=== PATIENT | male | born 1995 | race Caucasian/White ===

== ENCOUNTER 2017-02-25 21:55 | Inpatient (IN) | payer BC ==
--- NOTE | 2017-02-25 22:47 | EDPHY ---
Mental Health General Previous Psychiatric History: substance abuse, depression Smoking Status: Current some day smoker Time Patient Placed on Detainer: 22:35 Time Medically Cleared for Psychiatric Evaluation: 23:15 Time of Transfer of Care: 00:00 To [address]:: Jossie Narrative: CHIEF COMPLAINT: Depression HISTORY OF PRESENT ILLNESS: 21-year-old male presents emergency department complaining of depression and suicidal thoughts after he found out his girlfriend was going to prom with somebody else. Patient has a history of depression, he has a history of suicidal thoughts and depression 1 year ago. Patient reports he was on 2 different depression medications which he only took for a few months. Patient reports no suicidal plan though he told his mom and dad he wanted to go to bed and did not to wake up. Patient reports using occasional marijuana, cocaine and Xanax. He denies any drug use today. REVIEW OF SYSTEMS: A comprehensive 10 point review of systems is otherwise negative aside from elements mentioned in the history of present illness. Physical Exam Gen: Alert and Oriented, NAD HEENT: PERRL, moist mucous membranes NECK: no meningismus CV: regular rate and regular rhythm PULM: CTAB, no wheezes ABDOMEN: soft, non tender to palpation, BS present BACK: No CVA tenderness NEURO: Neurologically grossly intact EXTREMITIES: normal appearing SKIN: no rash or break in skin on exposed skin PSYCH: Flat affect, reports suicidal ideation. (Eliza Manuel) Medical Decision Making: PHYSICIAN DOCUMENTATION: The patient was evaluated and managed by the Physician [employer] Manager. My co- signature indicates that I have reviewed this chart and I agree with the findings and plan of care as documented. I am the secondary supervising physician. 3:00 a.m.- The patient has been seen by the mental health worker. He will be placed at [address] [place] [address] Vargas accepts the patient and I have completed the EMTALA form (Rosalva Sethi) - Objective Vital Signs: Initial Vital Signs Temperature (C) 36.8 C 02/25/17 22:00 Heart Rate 68 02/25/17 22:00 Respiratory Rate 16 02/25/17 22:00 Blood Pressure 114/70 02/25/17 22:00 O2 Sat (%) 95 02/25/17 22:00 O2 Delivery Mode Room Air Allergies/Adverse Reactions: No Known Allergies Allergy (Unverified 02/25/17 22:02) Home Medications: Medication Instructions Recorded NK [No Known Home Meds] 02/25/17 Laboratory Results: Laboratory Results 02/25/17 22:50 02/25/17 22:50 02/25/17 02/25/17 02/25/17 22:50 22:50 22:48 WBC 11.94 10^3/uL H 10^3/uL (3.80-9.50) RBC 5.27 10^6/uL 10^6/uL (4.40-6.38) Hgb 17.6 g/dL H g/dL (13.7-17.5) Hct 49.2 % % (40.0-51.0) MCV 93.4 fL fL (81.5-99.8) MCH 33.4 pg pg (27.9-34.1) MCHC 35.8 g/dL g/dL (32.4-36.7) RDW 12.3 % % (11.5-15.2) Plt Count 345 10^3/uL 10^3/uL (150-400) MPV 9.8 fL fL (8.7-11.7) Neut % (Auto) 64.2 % % (39.3-74.2) Lymph % (Auto) 25.3 % % (15.0-45.0) [place] % (Auto) 8.5 % % (4.5-13.0) Eos % (Auto) 0.8 % % (0.6-7.6) Baso % (Auto) 0.8 % % (0.3-1.7) Nucleat RBC Rel Count 0.0 % % (0.0-0.2) Absolute Neuts (auto) 7.67 10^3/uL H 10^3/uL (1.70-6.50) Absolute Lymphs (auto) 3.02 10^3/uL H 10^3/uL (1.00-3.00) Absolute Monos (auto) 1.02 10^3/uL H 10^3/uL (0.30-0.80) Absolute Eos (auto) 0.09 10^3/uL 10^3/uL (0.03-0.40) Absolute Basos (auto) 0.09 10^3/uL 10^3/uL (0.02-0.10) Absolute Nucleated RBC 0.00 10^3/uL 10^3/uL (0-0.01) Immature Gran % 0.4 % % (0.0-1.1) Immature Gran # 0.05 10^3/uL 10^3/uL (0.00-0.10) Sodium 140 mEq/L mEq/L (134-144) Potassium 4.1 mEq/L mEq/L (3.5-5.2) Chloride 102 mEq/L mEq/L (97-110) Carbon Dioxide 24 mEq/l mEq/l (22-31) Anion Gap 14 mEq/L mEq/L (8-16) BUN 11 mg/dL mg/dL (7-23) Creatinine 0.8 mg/dL mg/dL (0.7-1.3) Estimated GFR > 60 Glucose 86 mg/dL mg/dL (70-100) Calcium 10.3 mg/dL mg/dL (8.5-10.4) Urine Opiates Screen NEGATIVE (NEGATIVE) Urine Barbiturates NEGATIVE (NEGATIVE) Ur Phencyclidine Scrn NEGATIVE (NEGATIVE) Ur Amphetamine Screen NEGATIVE (NEGATIVE) U Benzodiazepines Scrn NEGATIVE (NEGATIVE) Urine Cocaine Screen NON-NEGATIVE H (NEGATIVE) U Marijuana (THC) Screen NON-NEGATIVE H (NEGATIVE) Ethyl Alcohol < 10 mg/dL mg/dL (0-10) Departure - Departure Disposition: [facility] IP Clinical Impression: Suicidal ideation Condition: Fair
[2017-02-25 22:56] LABS: % IMMATURE GRANULYOCYTES 0.4 % (0.0-1.1); ABSOLUTE IMMATURE GRANULOCYTES 0.05 10^3/uL (0.00-0.10); ADD DIFF? NO; ADD MORPH? NO; ADD SCAN? NO; ATYPICAL LYMPHOCYTE FLAG 10 (0-99); FRAGMENT RBC FLAG 0 (0-99); HEMATOCRIT 49.2 % (40.0-51.0); HEMOGLOBIN 17.6 g/dL (13.7-17.5); LEFT SHIFT FLG 0 (0-99); LIPEMIA HEMOLYSIS FLAG 90 (0-99); MEAN CELL HEMOGLOBIN 33.4 pg (27.9-34.1); MEAN CELL HEMOGLOBIN CONCENTR. 35.8 g/dL (32.4-36.7); MEAN CELL VOLUME 93.4 fL (81.5-99.8); MEAN PLATELET VOLUME 9.8 fL (8.7-11.7); PLATELET CLUMPS FLAG 0 (0-99); PLATELET COUNT 345 10^3/uL (150-400); RED BLOOD CELL COUNT 5.27 10^6/uL (4.40-6.38); RED CELL DISTRIBUTION WIDTH 12.3 % (11.5-15.2)
[2017-02-25 23:14] LABS: ANION GAP 14 mEq/L (8-16); CALCIUM 10.3 mg/dL (8.5-10.4); CARBON DIOXIDE 24 mEq/l (22-31); CHLORIDE 102 mEq/L (97-110); CREATININE 0.8 mg/dL (0.7-1.3); ETHANOL SERUM < 10 mg/dL (0-10); GLOMERULAR FILTRATION RATE > 60; GLUCOSE 86 mg/dL (70-100); POTASSIUM 4.1 mEq/L (3.5-5.2); SODIUM 140 mEq/L (134-144)
[2017-02-26] MEDS ORDERED: OLANZapine DISINTEGR 5 MG TAB PO PRN (04:15)
[2017-02-26] MEDS ORDERED: NICOTINE POLACRILEX 2 MG GUM B PRN (04:15)
[2017-02-26] MEDS ORDERED: MAGNESIUM HYDROXIDE 30 ML UDCUP PO PRN (04:15)
[2017-02-26] MEDS ORDERED: MAG HYDROX/AL HYDROX/SIMETH 30 ML UDCUP PO PRN (04:15)
[2017-02-26] MEDS ORDERED: ACETAMINOPHEN 325 MG TAB PO PRN (04:15)
[2017-02-26] MEDS: LORazepam 0.5 MG TAB PO PRN ×4 (12:57→23:08)
--- NOTE | 2017-02-26 16:04 | BCON ---
[f rep ] BEHAVIORAL HEALTH CONSULTATION INTERNAL MEDICINE CONSULTATION DATE OF CONSULTATION: 02/26/2017 REFERRING PHYSICIAN: Wendy Vargas MD REASON FOR CONSULTATION: Medical clearance for inpatient behavioral health stay. HISTORY OF PRESENT ILLNESS: The patient came to the emergency department yesterday complaining of depression and suicidal thoughts after he found that his girlfriend was going to the [facility] with somebody else. He had a history of depression in the past and had been on antidepressants but only took them for a few months. He reported using occasional marijuana, cocaine and Xanax. He was evaluated by the mental health team and admitted for further psychiatric care. He currently reports feeling tired, and reviewing the medication administration record he was given lorazepam today at 1344 in the afternoon. Otherwise he is without any acute complaints. PAST MEDICAL HISTORY: He denies any history of any medical illnesses other than depression. PAST SURGICAL HISTORY: He denies a history of surgeries. MEDICATIONS: He was on no medications. 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 He is a freshman. He lives in a dormitory on campus. He smokes occasional cigarettes. He also uses marijuana, cocaine and alprazolam. FAMILY HISTORY: Noncontributory. REVIEW OF SYSTEMS: A 10-point review of systems was conducted and other than fatigue was negative. PHYSICAL EXAM: VITAL SIGNS: Blood pressure is 132/65, heart rate is 80, respiratory rate is 16, oxygen saturation is 98% on room air, temperature is 36.6 degrees centigrade. His weight is 74.8 kg for a body mass index of 22.4. GENERAL: This is a well-nourished, well-developed man, appears his chronologic age, cooperative, and in no acute distress. HEENT: Extraocular movements are intact. Pupils are equal, round, and reactive to light. Mucous membranes are moist. Dentition is in good condition. His tonsils are 3+ in size. There is no posterior oropharyngeal mucus. There were no mucosal lesions. NECK: Supple. HEART: There is a regular rate and rhythm with no murmurs, rubs, or gallops. LUNGS: Clear to auscultation bilaterally. ABDOMEN: Soft, nontender , nondistended with normoactive bowel sounds. EXTREMITIES: There is no cyanosis, clubbing, or edema. NEUROLOGIC: He is alert and oriented x3. Cranial nerves 2-12 are grossly intact. There is no focal weakness and sensation is intact to light touch. LABORATORY STUDIES: Drawn in the emergency department. CBC showed a slightly elevated white blood cell count at 11.094. There was no left shift. Additionally, his hemoglobin was elevated at 17.6. Otherwise CBC was within normal limits. Serum chemistry revealed normal renal function and electrolytes. Toxicology screen: In the serum was negative for ethyl alcohol and in the urine was non-negative for cocaine and marijuana, and otherwise was negative for substances of abuse. ASSESSMENT/RECOMMENDATIONS: 1. Mental health issues. Pending further evaluation and management per Psychiatry and the mental health team. 2. Polysubstance abuse. He might benefit from specific substance abuse counseling. I see no medical contraindications to the patient's continued stay on the inpatient behavioral health unit or to any psychiatric medications or procedures. Thank you very much for including me in the care of this patient and please do not hesitate to contact me or the hospitalist service should there be need for further medical evaluation. /[id number]/MODL MTDD
[2017-02-26] MEDS: ZOLPIDEM TARTRATE 5 MG TAB PO PRN (22:31)
--- NOTE | 2017-02-27 06:32 | SOAPPROG ---
SOAP Progress Note Assessment/Plan: Assessment: Plan: 02/27/17 DAY ' UPDATE: Objective: Vital Signs Temp Pulse Resp BP Pulse Ox 36.8 C 91 16 132/78 H 94 02/27/17 02:49 02/27/17 02:49 02/27/17 02:49 02/27/17 02:49 02/27/17 02:49 ICD10 Worksheet Patient Problems: Problems Problem Status Onset Suicidal ideation Acute
--- NOTE | 2017-02-27 08:36 | BAPA ---
[f rep st] ADMISSION PSYCHIATRIC ASSESSMENT PATIENT IDENTIFICATION: The patient presents as a 21-year-old, single, white male, who is actively enrolled at as a freshman student. The patient lives real time [place] on campus in a freshman dormitory. He is not an identified psychiatric outpatient in the community at this time. Patient was admitted on an M1 hold to for complaints of a depressive crisis including suicidality. CHIEF COMPLAINT: "I wish I was unconscious or ." HISTORY OF PRESENT ILLNESS: The patient presents with a history of syndromal depression, onset as a ayse in high school age 18. The patient also presents with a history of poly substance abuse-primarily associated with THC, alcohol, and more recently also cocaine. The patient was treated with psychotherapy and medication management as a high school student living with his family in [facility]. History suggests that past treatment was of some help. Patient has not engaged in psychiatric treatment for an extended period of time, and states he was feeling stable following graduation from high school through this past summer and enrollment in late May as a freshman at . He states he has developed a stable life at , has made friends, joined a fraternity, and is succeeding academically. Patient's stability was abruptly disturbed on the day prior to admission when he found out that his high school sweetzunildart, who was completing her senior year at his high school in [place], canceled plans with the patient to take her to the high school prom, which had been their plan for an extended period of time. He learned from 1 of her friends that she had decided to go to the dance with someone else. He attempted to reach his girlfriend but calls were blocked. This information impacted to create a reactive depressive crisis. The patient states his despair and sadness intensified abruptly, psychomotor energy dropped, patient became acutely withdrawn. He did reach out and speak by telephone with his parents in [facility]. He expressed passive suicidal ideation, stating a suicidal thought process as referenced above in Chief Complaint. While speaking to his mother, mother became acutely concerned for his safety and persuaded the patient to self -refer to the [facility] Emergency Room for assistance. The patient's father strongly endorsed mother's suggestion and communicated to the patient that he would fly out from [place] to [place] to provide support to his son. In the emergency room, the patient cooperated with the medical and psychiatric assessment. Lab screens included a CBC, chemistries, and toxic screen. Toxic screen was positive for cocaine and THC. A blood alcohol was obtained and reported as negative, and other screens were unremarkable and/or within normal limits. The patient was seen in psychiatric consultation by [facility] staff. He provided content consistent with the above narrative. Patient also described past psychiatric symptom and treatment history as noted below. Mother was also called and contributed to intake database. On direct exam, the patient presented as acutely dysphoric with slowed speech, complaints of collapsed energy, again expressed passive suicidal ideation. He was deemed to be a high risk for self- harm and unable to manage safely in the community. He was placed on an M1 hold and accepted for admission to [address] [place] [address]. PSYCHIATRIC HISTORY: The patient developed an acute syndromal depression during his ayse year in high school. At the time, the patient was also abusing THC and ETOH. His behavior, per mother's report, became angry and rebellious. The patient states his parents insisted that he pursue outpatient psychiatric treatment. He did engage in outpatient psychotherapy and medication management, states he was prescribed Zoloft. Treatment apparently continued for 9-10 months. Patient reports it was helpful in diminishing his substance use as well as facilitated resolution of depressive symptoms. The patient stated the Zoloft regimen was helpful and that he stopped the medication after improving and with his doctors permission. Mother reported contradicting information to [facility], stating that patient stopped the medications secondary to side effects on his own. As referenced in the Present Illness, the patient reported he continued to stay depression free, feeling and functioning well through the summer after high school graduation and enrollment at . Patient reportedly stayed functional and well until the day prior to admission with the onset of acute affective pain, again as described in the present illness above. MEDICAL HISTORY: No active medical problems; medical history noncontributory. ALLERGIES: Patient denies environmental, food, or medication allergies. SUBSTANCE ABUSE HISTORY: The patient states he began to use THC and alcohol at age 16. He states his use pattern gradually increased to a problematic level by age 18. He states his substance use declined as he responded to the outpatient psychiatric treatment noted. He states since he enrolled at the [employer] he does "occasionally" use THC and alcohol. He also states he has intermittently used cocaine but does not feel any of his use patterns are problematic. Toxic screen as referenced was positive for cocaine and THC REVIEW OF SYMPTOMS: Medical review of systems: Negative. LEGAL HISTORY: Patient denies current or past history of any legal problems. PERSONAL HISTORY/FAMILY HISTORY: The patient was born and raised in an intact family of origin consisting of his biologic parents, a twin brother, and 2 other siblings. Denies any history for trauma and/or abuse within the family system through his childhood, adolescence and current time. He states he has positive relationships with his parents and siblings. He does state there is a maternal pedigree for alcoholism, but does not provide precise details. He states he has done well academically through high school and is managing his course work at [employer] in stable fashion. He states he has a number of friends since enrolling in college, has joined a fraternity, and has been enjoying his life up through the stressor event experienced prior to admission. ADMISSION MENTAL STATUS EXAM: On direct exam, the patient presents as a young adult male, who looks his stated age. He is kempt, has normal gait and station , engages cooperatively in the session. His mood state is acutely dysphoric, facies visually depressed; patient's speech pattern is slowed with soft tone, consistent with his acute acutely dysphoric mood. Affective range is constricted and expression of affect blunted-again consistent with his dysphoric mood. The patient's thought process is organized and reality focused. He appears to be of average intelligence referencing his vocabulary and language syntax. Memory function is intact across immediate, recent, and remote domains. The patient's insight is fair, impulse control intact, and judgment intact. The patient's thought process is linear, logical, and, to a limited degree, goal focused. Patient describes the impact of his girlfriend's decision to withdraw from the relationship as devastating. He states they have been involved for 2 years and she had decided to enroll at to join him next fall. He is surprised and shocked at the events of the last several days. "I don't know what to do now but I know I don't want to be ." He states he will cooperate with the inpatient treatment plan, maintain himself safely in the hospital, and is looking forward to his father's visiting him later in the day. ADL functions appear to be intact and appropriate for his age. The session focuses on staging his current mental status, obtaining symptom and treatment history, obtaining an overview of patient's lifeline history. He acknowledges the presence of passive suicidal ideation intermittently, but again restates his capacity to maintain himself safely in the hospital. He understands medications may be used during his inpatient stay but that further assessment will be necessary to determine this. FORMULATION: The patient presents as a 21-year-old, single, white male, who has a previous history of syndromal depression. Patient also has history for polydrug abuse. His current level of drug use activity is unclear but gives the impression that he is understating his use pattern since enrolling as a freshman at fall. Treatment will expedite expanding the database by contacting his parents. His need for standing medications will be determined over the next 24 hours. Initially, we will monitor closely his safety and suicidality via the Care Plan applied. collateral cntacts with pt's parents to be expedited. ADMISSION DIAGNOSTIC IMPRESSION: AXIS I: 1. Major Depressive Disorder-by history, chronic induration, recurrent in pattern; rule out acute exacerbation. 2. Alcohol Use Disorder-chronic history; current level of activity unclear. 3. THC Use Disorder-chronic induration, current level of activity unclear. 4. Cocaine Use Disorder-current level of activity unclear. AXIS II: Deferred. AXIS III: No active medical problems.; the patient is medically stable. AXIS IV: Girlfriend's cancellation of plans for her senior prom-2 year romantic relationship with possible break-up acutely; untreated psychiatric status prior to admission; question activity of poly substance use. AXIS V: Admission Global Assessment of Functioning 35. INITIAL TREATMENT PLAN: 1. Nursing-complete admission assessment; monitor patient for safety and suicidality; reinforce compliance with cares and medication regimen as established; orient patient to the unit community and group program and encourage participation. 2. Psychiatry-complete admission assessment; provide daily E/M contacts to complete psychiatric workup, assess and manage psychoactive medication needs, provide reintegrative psychotherapeutic contacts, ally patient with followup treatment post discharge. 3. Clinical Coordination: Daily contacts to expand the database; contact relevant collaterals to facilitate completion of workup; identify discharge resources to linked discharge plan at discharge. 4. Medicine-complete admission consultation per Dr. Kaur. 5. Medications: We will assess over 1st 24 hours and apply standing medication regimen as needed. 6. Prioritized Inpatient Goals: Stabilize mental status sufficient for discharge; complete diagnostic workup to inform discharge planning; ally patient with followup post discharge to linked discharge plan. /[id number]/MODL MTDD
[2017-02-27] MEDS: LORazepam 0.5 MG TAB PO PRN (13:18)
[2017-02-27] MEDS: buPROPion XL 150 MG TAB PO SCH (16:24)
[2017-02-27] MEDS: ZOLPIDEM TARTRATE 5 MG TAB PO PRN (23:01)
--- NOTE | 2017-02-28 06:41 | SOAPPROG ---
SOAP Progress Note Assessment/Plan: Assessment: Plan: 02/27/17 DAY UPDATE: Nursing reports pt remains in behavioral control, c/w cares/meds, slept 7 using Ambien; is isolative and appears visually depressed with soft,slowed speech; did attend selective groups but socially withdrawn. INTAKE/FOC: father presents as empathic and concerned about his son; gives useful overview of son's history - pt always sensitive to from home and evidences "separation anxiety" during childhood in going to school; his fraternal twin would be called by teachers to come into classroom where pt was and comfort him at times/ experienced night terrors (brief awakenings at night with screaming, confusion) < 10 x between ages [age]yo/did well in school and made griendsm, was athletic/ began to use alcohol age 16, added THC age 17 - parents became involved and set limits in active and appropriate manner/ emerging depression as hs ayse into senior year and did engage ?outpt psychiatric rx including psychotherapy and Zoloft/Trazodone regimen; academic and sports suffered during this perios and substance use continued at ?low level / summer before entering college seemed to be better time thru his enrollment; psychiatric rx had stopped early summer/ did have steady relationship with GF last 2 years of hs - very involved with GF coming to house in mornings and going to school with pt; GF was THC and ETOH consumer as well/ parents thought pt adapted well in college with honors grades, friends, were aware he was drinking and using THC but thought he was managing substance use. ON EXAM: presents as residually depressed but more interactive than on Day 1; denies SI; describes vegetative sx not unlike previous episodes "but worse"; responsive to reintegrative support; meds discussed and will begin Bupropion XL trial; MOC spoken with briefly in speaker phone contact with pt present; she and father are congruent in supporting pt through final week of academic year by being present in [place] for direct support and then return him to family home and outpt psychiatric treatment; pt wants to take exams in 2 of his 3 courses and file an "Incomplete" in third course to make up credit at later time. ASSESSMENT/PLAN: emerging syndromal depression as impact of abrupt b/u from GF sinks in/ begin Bupropion XL 150 mg qam; CP d/w Nursing in Rounds; will consider adding Trazadone hs; anticipate short stay with return to campus and followup sT at [facility] Objective: Vital Signs Temp Pulse Resp BP Pulse Ox 36.8 C 91 16 132/78 H 94 02/27/17 02:49 02/27/17 02:49 02/27/17 02:49 02/27/17 02:49 02/27/17 02:49 ICD10 Worksheet Patient Problems: Problems Problem Status Onset Suicidal ideation Acute
[2017-02-28] MEDS: buPROPion XL 150 MG TAB PO SCH (10:36)
[2017-02-28] MEDS: buPROPion 75 MG TAB PO SCH (14:50)
--- NOTE | 2017-02-28 15:03 | SOAPPROG ---
SOAP Progress Note Assessment/Plan: Assessment: Plan: 02/27/17 DAY UPDATE: Nursing reports pt remains in behavioral control, c/w cares/meds, slept 7 using Ambien; is isolative and appears visually depressed with soft,slowed speech; did attend selective groups but socially withdrawn. INTAKE/FOC: father presents as empathic and concerned about his son; gives useful overview of son's history - pt always sensitive to from home and evidences "separation anxiety" during childhood in going to school; his fraternal twin would be called by teachers to come into classroom where pt was and comfort him at times/ experienced night terrors (brief awakenings at night with screaming, confusion) < 10 x between ages [age]yo/did well in school and made griendsm, was athletic/ began to use alcohol age 16, added THC age 17 - parents became involved and set limits in active and appropriate manner/ emerging depression as hs ayse into senior year and did engage ?outpt psychiatric rx including psychotherapy and Zoloft/Trazodone regimen; academic and sports suffered during this perios and substance use continued at ?low level / summer before entering college seemed to be better time thru his enrollment; psychiatric rx had stopped early summer/ did have steady relationship with GF last 2 years of hs - very involved with GF coming to house in mornings and going to school with pt; GF was THC and ETOH consumer as well/ parents thought pt adapted well in college with honors grades, friends, were aware he was drinking and using THC but thought he was managing substance use. ON EXAM: presents as residually depressed but more interactive than on Day 1; denies SI; describes vegetative sx not unlike previous episodes "but worse"; responsive to reintegrative support; meds discussed and will begin Bupropion XL trial; MOC spoken with briefly in speaker phone contact with pt present; she and father are congruent in supporting pt through final week of academic year by being present in [place] for direct support and then return him to family home and outpt psychiatric treatment; pt wants to take exams in 2 of his 3 courses and file an "Incomplete" in third course to make up credit at later time. ASSESSMENT/PLAN: emerging syndromal depression as impact of abrupt b/u from GF sinks in/ begin Bupropion XL 150 mg qam; CP d/w Nursing in Rounds; will consider adding Trazadone hs; anticipate short stay with return to campus and followup sT at [facility] Objective: Vital Signs Temp Pulse Resp BP Pulse Ox 36.4 C 60 14 110/60 96 02/28/17 06:00 02/28/17 06:00 02/28/17 06:00 02/28/17 06:00 02/28/17 06:00 ICD10 Worksheet Patient Problems: Problems Problem Status Onset Suicidal ideation Acute
--- NOTE | 2017-02-28 15:48 | SOAPPROG ---
SOAP Progress Note Assessment/Plan: Assessment: Plan: 02/27/17 DAY UPDATE: Nursing reports pt remains in behavioral control, c/w cares/meds, slept 7 using Ambien; is isolative and appears visually depressed with soft,slowed speech; did attend selective groups but socially withdrawn. INTAKE/FOC: father presents as empathic and concerned about his son; gives useful overview of son's history - pt always sensitive to from home and evidences "separation anxiety" during childhood in going to school; his fraternal twin would be called by teachers to come into classroom where pt was and comfort him at times/ experienced night terrors (brief awakenings at night with screaming, confusion) < 10 x between ages [age]yo/did well in school and made griendsm, was athletic/ began to use alcohol age 16, added THC age 17 - parents became involved and set limits in active and appropriate manner/ emerging depression as hs ayse into senior year and did engage ?outpt psychiatric rx including psychotherapy and Zoloft/Trazodone regimen; academic and sports suffered during this perios and substance use continued at ?low level / summer before entering college seemed to be better time thru his enrollment; psychiatric rx had stopped early summer/ did have steady relationship with GF last 2 years of hs - very involved with GF coming to house in mornings and going to school with pt; GF was THC and ETOH consumer as well/ parents thought pt adapted well in college with honors grades, friends, were aware he was drinking and using THC but thought he was managing substance use. ON EXAM: presents as residually depressed but more interactive than on Day 1; denies SI; describes vegetative sx not unlike previous episodes "but worse"; responsive to reintegrative support; meds discussed and will begin Bupropion XL trial; MOC spoken with briefly in speaker phone contact with pt present; she and father are congruent in supporting pt through final week of academic year by being present in [place] for direct support and then return him to family home and outpt psychiatric treatment; pt wants to take exams in 2 of his 3 courses and file an "Incomplete" in third course to make up credit at later time. ASSESSMENT/PLAN: emerging syndromal depression as impact of abrupt b/u from GF sinks in/ begin Bupropion XL 150 mg qam; CP d/w Nursing in Rounds; will consider adding Trazadone hs; anticipate short stay with return to campus and followup sT at [facility] 02/28/17 15:05 DAY " UPDATE: Nursing reports over last 24 hours pt continues to evidence significant syndromal depression; is slightly more mobilized in spending time in selected groups and some selective contact with patients informally. ON EXAM: presents with residual significant dysphoria, slowed speech, blunted affect; states he "feelsthe same"; does deny SI but does say he continues to feel "hurt and confused"; medications discussed and pt states he's tolerating well; continues to deny major problems with substances before admission and states his cocaineuse is only sporadic; states he's interested in taking final exams as referenced in the session yesterday and would like to study while an inpt here; meds discussed and tp accepts dosing changes as referenced. FOC seen with patient and alone; FOC states his concern with patient present that son will not follow thru with outpt treatment and still wants to use ETOH and drink with friends when discharged; pt said very little in the 3-way; alone FOC shared with me that son's substance use has been much more progressed that previously thought based on information he received in confidence from ex-girl friends parents given their daughter's disclosures to them; he disclosed son was using cocaine to much greater extent in [place] before coming to enroll in college. He also said that son told him he buys drugs from his friends and inferred that use pattern is much heavier that what he thought. He also said when pt present that final exams and papers can be done when pt more functional later into spring and summer and credit be granted so that rapid discharge back to campus not necessary for completing the academic year. I endorse this plan as did pt in the joint meeting before the later disclosures to me about pt's drug use from the [facility]. [facility] and I agreed this information would need to extend pt's inpt stay to complete the workup, effective restabilization, and aftercare planning. [facility] wishes to keep intake from GF's parents in confidence from the patient to which I agreed ON EXAM #2 - Pt seen later in day and focus on needing to develope accurate drug use history to complete workup and aftercare planning; pt alert and responsive in session to cooperating as I explained it's a problem which began age 16 and is always under-reported intially as patients are seeking help. I did share that FOC is concerned that pt's friends are supplying him and using with him. ASSESSMENT/PLAN: residual syndromal depressive acuity; minimizing drug history to date but aware of the need to disclose/ will increase Bupropion to 225 mg qd and add Trazodone 50 mg hs; cp reviewed with Nursing in Rounds and later in shift for weekend focus Objective: Vital Signs Temp Pulse Resp BP Pulse Ox 36.4 C 60 14 110/60 96 02/28/17 06:00 02/28/17 06:00 02/28/17 06:00 02/28/17 06:00 02/28/17 06:00 ICD10 Worksheet Patient Problems: Problems Problem Status Onset Suicidal ideation Acute
[2017-02-28] MEDS: LORazepam 0.5 MG TAB PO PRN (20:45)
[2017-02-28] MEDS: traZODone 50 MG TAB PO SCH (21:49)
[2017-02-28] MEDS: ZOLPIDEM TARTRATE 5 MG TAB PO PRN (23:01)
[2017-03-01] MEDS: buPROPion 75 MG TAB PO SCH (09:55)
[2017-03-01] MEDS: buPROPion XL 150 MG TAB PO SCH (09:55)
[2017-03-01] MEDS: LORazepam 0.5 MG TAB PO PRN ×2 (13:38→21:48)
--- NOTE | 2017-03-01 21:25 | SOAPPROG ---
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 Staes prior to admission , "I was in a sad, depressed state, my parents thought I shouldn't be alone...I wish I went with my friends instead of coming to the hospital...I'm perfectly fine now." Does not think he is depressed, although admits having felt so a few days ago. Admits using cocaine most recently on 02/24/17 which was offered to him "free" at a [employer] constitution party, does not think depr/SI was affected by this or related to any crashing from this. "I am not sad about anything anymore". States girlfriend break-up was on 02/25 after 2 years, and despite problems they had, he thought thinks were going better over the past 2 mo. Admits she didn't want him to do drugs, which he denied doing much "but I lied about it". States she didn't want him to use "b/c she cares about my health", and he himself thinks drugs "minimally" affect his health, mainly uses b/c "it's fun". reports having used cocaine "a handful of times", but doesn't prefer it b/c "it' s addictive, and expensive", noting 2 yrs ago he was using more and felt it's addictive pull. Denies med s/e. Taking meds as Rxd but doesn't think he's depressed, also minimizing substance use being problematic, and seems to regret coming to the hospital for help. Reports drug of choice is THC. Does state having seen a psychiatrist for 5 years in the past for meds/therapy was helpful at that time, and presently is agreeable with plan to refer for MH treatment after d/c. MSE: cooperative, casually dressed, good/fair eye contact, nml rate/vol speech, mood "fine", affect restricted, thoughts linear without delusions, denied any AH /VH, and denied any SI or thoughts to harm others. insight/jdgmt impaired. PLAN: cont Wellbutrin 225mg, Trazodone HS prn cont education on subst use risks/effects on MH. question [employer] compliance with treatment if without insight enc group attendance Objective: Vital Signs Temp Pulse Resp BP Pulse Ox 36.6 C 80 12 106/61 95 03/01/17 06:00 03/01/17 06:00 03/01/17 06:00 03/01/17 06:00 03/01/17 06:00 - Time Spent With Patient Time Spent With Patient: 35min - Pending Discharge Pending Discharge Within 24 Hours: No Pending Discharge Within 48 Hours: No ICD10 Worksheet Patient Problems: Problems Problem Status Onset Suicidal ideation Acute
[2017-03-01] MEDS: traZODone 50 MG TAB PO SCH (21:46)
[2017-03-01] MEDS: ZOLPIDEM TARTRATE 5 MG TAB PO PRN (22:44)
[2017-03-02 06:24] VITALS: O2SAT 92
[2017-03-02] MEDS: buPROPion 75 MG TAB PO SCH (10:59)
[2017-03-02] MEDS: buPROPion XL 150 MG TAB PO SCH (10:59)
[2017-03-02] MEDS: LORazepam 0.5 MG TAB PO PRN ×2 (14:11→21:32)
--- NOTE | 2017-03-02 17:54 | SOAPPROG ---
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 Staes prior to admission , "I was in a sad, depressed state, my parents thought I shouldn't be alone...I wish I went with my friends instead of coming to the hospital...I'm perfectly fine now." Does not think he is depressed, although admits having felt so a few days ago. Admits using cocaine most recently on 02/24/17 which was offered to him "free" at a [employer], does not think depr/SI was affected by this or related to any crashing from this. "I am not sad about anything anymore". States girlfriend break-up was on 02/25 after 2 years, and despite problems they had, he thought thinks were going better over the past 2 mo. Admits she didn't want him to do drugs, which he denied doing much "but I lied about it". States she didn't want him to use "b/c she cares about my health", and he himself thinks drugs "minimally" affect his health, mainly uses b/c "it's fun". reports having used cocaine "a handful of times", but doesn't prefer it b/c "it' s addictive, and expensive", noting 2 yrs ago he was using more and felt it's addictive pull. Denies med s/e. Taking meds as Rxd but doesn't think he's depressed, also minimizing substance use being problematic, and seems to regret coming to the hospital for help. Reports drug of choice is THC. Does state having seen a psychiatrist for 5 years in the past for meds/therapy was helpful at that time, and presently is agreeable with plan to refer for MH treatment after d/c. MSE: cooperative, casually dressed, good/fair eye contact, nml rate/vol speech, mood "fine", affect restricted, thoughts linear without delusions, denied any AH /VH, and denied any SI or thoughts to harm others. insight /jdgmt impaired. PLAN: cont Wellbutrin 225mg, Trazodone HS prn cont education on subst use risks/effects on MH. question long-term compliance with MH treatment if impaired insight enc group attendance 03/02/17 15:25 per staff, slept 7.5hr feeling "great, relaxed" coloring mandala. states he feels "back to my normal self" which he thinks is related to "time, thinking a lot, and meds". Looking forward to summer and returning to [place] and seeing friends. Feels groups on unit have been beneficial. When talking about ex-girlfriend issue, "I just think whatever, it's her loss". "I never wanted to kill myself" Denied med s/e. states sleeping well. Has notebook in which he wrote a lot hoping to present his plan for after d/c during family meeting tomorrow with his father who wants him to go to another in rehab for subst use. Pt proposes weekly meetings with former psychiatrist who was very helpful in past, regular random drug screens, groups for subst use/ depr 2-3x week. Will discuss at [facility] mt tomorrow. MSE: cooperative, casually dressed, nml eye contact, coloring while talking but engaged and then showing his journaling, nml rate/vol speech, mood "great", affect euthymic, thoughts linear and reality-based, denied any AH/VH, and denied any SI or thoughts to harm others. insight/jdgmt seem better PLAN: anticipates family mtg tomorrow with his father and psychiatrist continue current meds. planning for d/c tomorrow with father and f/u in [place] Objective: Vital Signs Temp Pulse Resp BP Pulse Ox 36.3 C 70 12 114/64 92 03/02/17 06:00 03/02/17 06:00 03/02/17 06:00 03/02/17 06:00 03/02/17 06:00 - Pending Discharge Pending Discharge Within 24 Hours: Yes Pending Discharge Within 48 Hours: No Pending Discharge Date: 03/03/17 Pending Discharge Time: 11:00 ICD10 Worksheet Patient Problems: Problems Problem Status Onset Suicidal ideation Acute
[2017-03-02] MEDS: traZODone 50 MG TAB PO SCH (22:06)
[2017-03-02] MEDS: ZOLPIDEM TARTRATE 5 MG TAB PO PRN (22:45)
[2017-03-03 06:24] VITALS: BP 111/56; PULSE 54; RESP 14; TEMP 98.1
[2017-03-03] MEDS: buPROPion XL 150 MG TAB PO SCH (09:31)
[2017-03-03] MEDS: buPROPion 75 MG TAB PO SCH (09:31)
--- NOTE | 2017-03-03 14:35 | SOAPPROG ---
SOAP Progress Note Assessment/Plan: Assessment: Plan: 02/27/17 DAY UPDATE: Nursing reports pt remains in behavioral control, c/w cares/meds, slept 7 using Ambien; is isolative and appears visually depressed with soft,slowed speech; did attend selective groups but socially withdrawn. INTAKE/FOC: father presents as empathic and concerned about his son; gives useful overview of son's history - pt always sensitive to from home and evidences "separation anxiety" during childhood in going to school; his fraternal twin would be called by teachers to come into classroom where pt was and comfort him at times/ experienced night terrors (brief awakenings at night with screaming, confusion) < 10 x between ages [age]yo/did well in school and made friends, was athletic/ began to use alcohol age 16, added THC age 17 - parents became involved and set limits in active and appropriate manner/ emerging depression as hs ayse into senior year and did engage ?outpt psychiatric rx including psychotherapy and Zoloft/Trazodone regimen; academic and sports suffered during this perios and substance use continued at ?low level / summer before entering college seemed to be better time thru his enrollment; psychiatric rx had stopped early summer/ did have steady relationship with GF last 2 years of hs - very involved with GF coming to house in mornings and going to school with pt; GF was THC and ETOH consumer as well/ parents thought pt adapted well in college with honors grades, friends, were aware he was drinking and using THC but thought he was managing substance use. ON EXAM: presents as residually depressed but more interactive than on Day 1; denies SI; describes vegetative sx not unlike previous episodes "but worse"; responsive to reintegrative support; meds discussed and will begin Bupropion XL trial; MOC spoken with briefly in speaker phone contact with pt present; she and father are congruent in supporting pt through final week of academic year by being present in [place] for direct support and then return him to family home and outpt psychiatric treatment; pt wants to take exams in 2 of his 3 courses and file an "Incomplete" in third course to make up credit at later time. ASSESSMENT/PLAN: emerging syndromal depression as impact of abrupt b/u from GF sinks in/ begin Bupropion XL 150 mg qam; CP d/w Nursing in Rounds; will consider adding Trazadone hs; anticipate short stay with return to campus and followup sT at [facility] 03/03/17 14:34 DAY Objective: Vital Signs Temp Pulse Resp BP Pulse Ox 36.7 C 54 L 14 111/56 L 92 03/03/17 06:00 03/03/17 06:00 03/03/17 06:00 03/03/17 06:00 03/03/17 06:00 ICD10 Worksheet Patient Problems: Problems Problem Status Onset Suicidal ideation Acute
--- NOTE | 2017-03-03 14:51 | SOAPPROG ---
SOAP Progress Note Assessment/Plan: Assessment: Plan: 02/27/17 DAY UPDATE: Nursing reports pt remains in behavioral control, c/w cares/meds, slept 7 using Ambien; is isolative and appears visually depressed with soft,slowed speech; did attend selective groups but socially withdrawn. INTAKE/FOC: father presents as empathic and concerned about his son; gives useful overview of son's history - pt always sensitive to from home and evidences "separation anxiety" during childhood in going to school; his fraternal twin would be called by teachers to come into classroom where pt was and comfort him at times/ experienced night terrors (brief awakenings at night with screaming, confusion) < 10 x between ages [age]yo/did well in school and made friends, was athletic/ began to use alcohol age 16, added THC age 17 - parents became involved and set limits in active and appropriate manner/ emerging depression as hs ayse into senior year and did engage ?outpt psychiatric rx including psychotherapy and Zoloft/Trazodone regimen; academic and sports suffered during this perios and substance use continued at ?low level / summer before entering college seemed to be better time thru his enrollment; psychiatric rx had stopped early summer/ did have steady relationship with GF last 2 years of hs - very involved with GF coming to house in mornings and going to school with pt; GF was THC and ETOH consumer as well/ parents thought pt adapted well in college with honors grades, friends, were aware he was drinking and using THC but thought he was managing substance use. ON EXAM: presents as residually depressed but more interactive than on Day 1; denies SI; describes vegetative sx not unlike previous episodes "but worse"; responsive to reintegrative support; meds discussed and will begin Bupropion XL trial; MOC spoken with briefly in speaker phone contact with pt present; she and father are congruent in supporting pt through final week of academic year by being present in [place] for direct support and then return him to family home and outpt psychiatric treatment; pt wants to take exams in 2 of his 3 courses and file an "Incomplete" in third course to make up credit at later time. ASSESSMENT/PLAN: emerging syndromal depression as impact of abrupt b/u from GF sinks in/ begin Bupropion XL 150 mg qam; CP d/w Nursing in Rounds; will consider adding Trazadone hs; anticipate short stay with return to campus and followup sT at [facility] 03/03/17 14:34 DAY ' UPDATE: Nursing reports that over weekend pt did cooperate with further openess and content about drug use history over past 3 - 4 years as well as treatment experience with private psychiatrist which, in fact, was productive and terminated 1 month before beginning at last May 2016. Pt also reported to me in session that his "big brother" - upperclassmen mentor from his fraternity spoke to [pt's father lver weekend to objectify pt's substance use patterns. Father was reassured and FOC and pt spoke together later in day yesterday and reached agreement that pt would resume working with private psychiatrist back home as soon as he return; could be seen as early as tomorrow if pt can DC today. ON EXAM X 2 - seen alone and in family meeting with FOC/ presents as improved descriptively, mmore open with me directly about durg use patterns as well as more factual about the parallel experience of depression during senior year and the effective oupt intervention before coming to college to enroll last summer. He says he and FOC are congruent with a dC today and he would look forward to seeing this psychiatrist tomorrow if DC'd to fly back home with kadener today. Family meeting which followed affirmed his progrss and the agreement between father and son about this followup plan. DC today appropriate. ASSESSMENT/PLAN: stable for DC today DC in company of FOC and fly with father home to family later today see and resume treatment with private psychiatrist Objective: Vital Signs Temp Pulse Resp BP Pulse Ox 36.7 C 54 L 14 111/56 L 92 03/03/17 06:00 03/03/17 06:00 03/03/17 06:00 03/03/17 06:00 03/03/17 06:00 ICD10 Worksheet Patient Problems: Problems Problem Status Onset Suicidal ideation Acute
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
== END 2017-03-03 13:04 | disposition home or self-care (01) | DRG 881 ==
LOC: BBEH 02-26 04:05
PROVIDERS: ADMIT Psychiatry & Neurology Behavioral Neurology & Neuropsychiatry; ATTEND Psychiatry & Neurology Behavioral Neurology & Neuropsychiatry
DX: F32.9 Major depressive disorder, single episode, unspecified (principal); R45.851 Suicidal ideations; F12.10 Cannabis abuse, uncomplicated; F14.90 Cocaine use, unspecified, uncomplicated; F17.210 Nicotine dependence, cigarettes, uncomplicated
CPT/HCPCS: 80305; G0480

== ENCOUNTER 2017-05-05 19:52 | Emergency (ER) | payer BC ==
[2017-05-05 20:04] VITALS: BP 133/71; PULSE 56; TEMP 98.2; O2SAT 92
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
[2017-05-05 21:38] VITALS: RESP 15
== END 2017-05-05 21:34 | disposition home or self-care (01) ==
DX: Z46.89 Encounter for fitting and adjustment of other specified devices (principal)

== ENCOUNTER 2018-02-01 15:37 | Emergency (ER) | payer BC ==
[2018-02-01 15:47] VITALS: BP 120/77
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
== END 2018-02-01 16:32 | disposition home or self-care (01) ==
DX: L98.9 Disorder of the skin and subcutaneous tissue, unspecified (principal); F17.200 Nicotine dependence, unspecified, uncomplicated